=== PATIENT | female | born 2000 | race Caucasian/White ===

== ENCOUNTER 2019-04-23 02:28 | Emergency (ER) | payer SELFPAY ==
[~2019-04-23] VITALS: Ht 162 cm; Wt 72.0 kg
--- NOTE | 2019-04-23 02:46 | ED Psychosocial ---
General Stated Complaint: OVERDOSE Source: patient, spouse (jai Ybarra) Exam Limitations: no limitations (ANDREEA JARRETT) History of Present Illness Date Seen by Provider: Apr 23, 2019 Time Seen by Provider: 02:30 Initial Comments Patient presents to ER by EMS from scene where she lives with her grandfather and jai, currently. She has felt depressed for many years and has had suicidal thoughts in the past but she denies having any suicidal thoughts today. She says between finances and the stress in her life just felt totally out of it. She had a bottle of ibuprofen since around for menstrual cramps and headaches with this new and open 100 tabs 200 mg each. She says she just started taking them because it felt like a good thing to do. She really didn't have any goal. She denies multiple times she is suicidal or had any suicidal thoughts of time. Had some nausea. She started taking them around 10:00 last night and apologetic about 10:15 minutes to take the whole bottle. She denies any vomiting. She's not having any nausea now. No fevers chills, diarrhea, constipation, belly pain, acid reflux, dysuria or discharge. She's not on control or any medications. She does not follow with a doctor. She does not follow with a counselor or psychiatrist. She has no known drug allergies. She does have a history of cutting and says she was doing some scratching with her fingernails of her forearms couple weeks ago but nothing recently. (ANDREEA JARRETT) Allergies and Home Medications Allergies Coded Allergies: No Known Drug Allergies (Unverified , 04/23/19) Patient Home Medication List Home Medication List Reviewed: Yes (ANDREEA JARRETT) Review of Systems Constitutional: No chills, No fever, No malaise EENTM: No ear discharge, No ear pain Respiratory: No cough, No phlegm, No short of breath Cardiovascular: No chest pain, No edema Gastrointestinal: No abdominal pain, No constipation; nausea; No vomiting Genitourinary: No discharge, No dysuria : No Control/STD Prophylaxis: None Musculoskeletal: No back pain, No joint pain Skin: No pruritus, No rash Psychiatric/Neurological: See HPI, Depressed (ANDREEA JARRETT) All Other Systems Reviewed Negative Unless Noted: Yes (ANDREEA JARRETT) Past Fuqeqyl-Fbmunz-Gobfok Hx Patient Social History Alcohol Use: Occasionally Uses Recreational Drug Use: No (ANDREEA JARRETT) Physical Exam Vital Signs - First Documented 04/23/19 02:29 Temp 36.2 Pulse 98 Resp 18 B/P (MAP) 150/80 (103) Pulse Ox 98 O2 Delivery Room Air (LG BHAKTA MD) Capillary Refill : (ANDREEA JARRETT) Height, Weight, BMI Height: '" Weight: lbs. oz. kg; BMI Method: General Appearance: no apparent distress, other (disheveled) HEENT: PERRL/EOMI, pharynx normal Neck: non-tender, full range of motion Respiratory: lungs clear, normal breath sounds, no respiratory distress, no accessory muscle use Cardiovascular: normal peripheral pulses, regular rate, rhythm, no edema Peripheral Pulses: 2+ Radial Pulses (R), 2+ Radial Pulses (L) Gastrointestinal: non tender, soft Neurologic/Psychiatric: alert, oriented x 3, other (flat, depressed affect. She denies suicidal or homicidal ideation. She denies hallucinations or delusions.) Appearance/Memory: neat; No denies illness; disheveled Behavior/Eye Contact: cooperative, good eye contact, decreased rate of speech Thoughts/Hallucinations: no apparent hallucination Skin: normal color, warm/dry, other (no evidence of cutting recently) (ANDREEA JARRETT) Progress/Results/Core Measures Results/Orders Lab Results Laboratory Tests Test 04/23/19 02:32 04/23/19 02:42 04/23/19 03:57 04/23/19 06:40 Range/Units Urine Color YELLOW Urine Clarity CLEAR Urine pH 6.0 5-9 Urine Specific Douglas <=1.005 1.016-1.022 Urine Protein NEGATIVE NEGATIVE Urine Glucose (UA) NEGATIVE NEGATIVE Urine Ketones NEGATIVE NEGATIVE Urine Nitrite NEGATIVE NEGATIVE Urine Bilirubin NEGATIVE NEGATIVE Urine Urobilinogen 0.2 < = 1.0 MG/DL Urine Leukocyte Esterase NEGATIVE NEGATIVE Urine RBC (Auto) 1+ H NEGATIVE Urine RBC RARE /HPF Urine WBC NONE /HPF Urine Squamous Epithelial Cells 0-2 /HPF Urine Renal Epithelial Cells NONE /HPF Urine Crystals NONE /LPF Urine Bacteria TRACE /HPF Urine Casts NONE /LPF Urine Mucus NEGATIVE /LPF Urine Culture Indicated NO Urine Test NEGATIVE NEGATIVE Urine Opiates Screen NEGATIVE NEGATIVE Urine Oxycodone Screen NEGATIVE NEGATIVE Urine Methadone Screen NEGATIVE NEGATIVE Urine Propoxyphene Screen NEGATIVE NEGATIVE Urine Barbiturates Screen NEGATIVE NEGATIVE Ur Tricyclic Antidepressants Screen NEGATIVE NEGATIVE Urine Phencyclidine Screen NEGATIVE NEGATIVE Urine Amphetamines Screen NEGATIVE NEGATIVE Urine Methamphetamines Screen NEGATIVE NEGATIVE Urine Benzodiazepines Screen NEGATIVE NEGATIVE Urine Cocaine Screen NEGATIVE NEGATIVE Urine Cannabinoids Screen NEGATIVE NEGATIVE White Blood Count 13.2 H 4.3-11.0 10^3/uL Red Blood Count 4.90 4.35-5.85 10^6/uL Hemoglobin 14.0 11.5-16.0 G/DL Hematocrit 42 35-52 % Mean Corpuscular Volume 86 80-99 FL Mean Corpuscular Hemoglobin 29 25-34 PG Mean Corpuscular Hemoglobin Concent 33 32-36 G/DL Red Cell Distribution Width 13.1 10.0-14.5 % Platelet Count 376 130-400 10^3/uL Mean Platelet Volume 10.2 7.4-10.4 FL Neutrophils (%) (Auto) 59 42-75 % Lymphocytes (%) (Auto) 29 12-44 % Monocytes (%) (Auto) 8 0-12 % Eosinophils (%) (Auto) 4 0-10 % Basophils (%) (Auto) 0 0-10 % Neutrophils # (Auto) 7.8 1.8-7.8 X 10^3 Lymphocytes # (Auto) 3.9 1.0-4.0 X 10^3 Monocytes # (Auto) 1.0 0.0-1.0 X 10^3 Eosinophils # (Auto) 0.5 H 0.0-0.3 10^3/uL Basophils # (Auto) 0.1 0.0-0.1 10^3/uL Sodium Level 141 141 135-145 MMOL/L Potassium Level 4.3 4.0 3.6-5.0 MMOL/L Chloride Level 107 108 H 98-107 MMOL/L Carbon Dioxide Level 16 L 18 L 21-32 MMOL/L Anion Gap 18 H 15 H 5-14 MMOL/L Blood Urea Nitrogen 13 11 7-18 MG/DL Creatinine 0.75 0.75 0.60-1.30 MG/DL Estimat Glomerular Filtration Rate > 60 > 60 BUN/Creatinine Ratio 17 15 Glucose Level 88 101 70-105 MG/DL Calcium Level 9.7 8.9 8.5-10.1 MG/DL Corrected Calcium 9.4 8.8 8.5-10.1 MG/DL Total Bilirubin 0.2 0.2 0.1-1.0 MG/DL Aspartate Amino Transf (AST/SGOT) 28 41 H 5-34 U/L Alanine Aminotransferase (ALT/SGPT) 19 32 0-55 U/L Alkaline Phosphatase 116 108 40-136 U/L Total Protein 8.2 7.4 6.4-8.2 GM/DL Albumin 4.4 4.1 3.2-4.5 GM/DL Salicylates Level < 5.0 L 5.0-20.0 MG/DL Acetaminophen Level 17 < 10 L 10-30 UG/ML Serum Alcohol < 10 <10 MG/DL Blood Gas Puncture Site RIGHT RADIAL Blood Gas Patient Temperature 36.7 Arterial Blood pH 7.31 *L 7.37-7.43 Arterial Blood Partial Pressure CO2 43 35-45 MMHG Arterial Blood Partial Pressure O2 97 H 79-93 MMHG Arterial Blood HCO3 21 L 23-27 MMOL/L Arterial Blood Total CO2 22.4 21.0-31.0 MMOL/L Arterial Blood Oxygen Saturation 98 94-100 % Arterial Blood Base Excess -4.2 L -2.5-2.5 MMOL/L Zurdo Test POSITIVE Blood Gas Ventilator Setting NO Blood Gas Inspired Oxygen ROOM AIR Test 04/23/19 06:44 04/23/19 09:57 04/23/19 10:17 Range/Units Blood Gas Puncture Site LEFT RADIAL LEFT RADIAL Blood Gas Patient Temperature 36.2 37 Arterial Blood pH 7.32 *L 7.35 L 7.37-7.43 Arterial Blood Partial Pressure CO2 37 41 35-45 MMHG Arterial Blood Partial Pressure O2 98 H 95 H 79-93 MMHG Arterial Blood HCO3 19 L 22 L 23-27 MMOL/L Arterial Blood Total CO2 20.1 L 23.2 21.0-31.0 MMOL/L Arterial Blood Oxygen Saturation 98 98 94-100 % Arterial Blood Base Excess -6.3 L -2.8 L -2.5-2.5 MMOL/L Zurdo Test POSITIVE POSITIVEV Blood Gas Ventilator Setting NO NO Blood Gas Inspired Oxygen ROOM AIR N/A Sodium Level 141 135-145 MMOL/L Potassium Level 4.5 3.6-5.0 MMOL/L Chloride Level 110 H 98-107 MMOL/L Carbon Dioxide Level 20 L 21-32 MMOL/L Anion Gap 11 5-14 MMOL/L Blood Urea Nitrogen 12 7-18 MG/DL Creatinine 0.70 0.60-1.30 MG/DL Estimat Glomerular Filtration Rate > 60 BUN/Creatinine Ratio 17 Glucose Level 92 70-105 MG/DL Calcium Level 8.9 8.5-10.1 MG/DL Corrected Calcium 8.9 8.5-10.1 MG/DL Total Bilirubin 0.2 0.1-1.0 MG/DL Aspartate Amino Transf (AST/SGOT) 36 H 5-34 U/L Alanine Aminotransferase (ALT/SGPT) 32 0-55 U/L Alkaline Phosphatase 101 40-136 U/L Total Protein 7.2 6.4-8.2 GM/DL Albumin 4.0 3.2-4.5 GM/DL (LG BHAKTA MD) My Orders Orders - LG BHAKTA MD General/Regular (04/23/19 Breakfast) Arterial Blood Gas (04/23/19 09:48) Comprehensive Metabolic Panel (04/23/19 09:48) (LG BHAKTA MD) Medications Given in ED Current Medications Medications Dose Ordered Sig/Db Route Start Time Stop Time Status Last Admin Dose Admin Pantoprazole 40 mg ONCE ONCE IV 04/23/19 03:45 04/23/19 03:46 DC 04/23/19 03:51 40 MG (LG BHAKTA MD) Vital Signs/I&O 04/23/19 02:29 Temp 36.2 Pulse 98 Resp 18 B/P (MAP) 150/80 (103) Pulse Ox 98 O2 Delivery Room Air (LG BHAKTA MD) Progress Progress Note : Time: 04:17 Progress Note Initially poison control wanted us to obtain labs. If her chemistry panel demonstrated acidosis obtain an ABG. ABG shows a pH of 7.31 metabolic acidosis. Poison control had Suggested we give bicarbonate however we are going to call them back and clarify he blood pH bicarbonate would be indicated. Repeat EKG is unremarkable. They also recommended a 6 hour period to watch her and then repeat a chem panel. We gave pantoprazole. Patient is sleeping quietly without complaint. Her first liter is able to keep some lactated Ringer's going about 100 cc per hour while she's here to continue to help flush her kidneys. Urine negative. They advised that the lower limit of severe toxicity usually begins around 400 mg/kg or 20,800 mg. She's ingested approximately 20,000 mg. This puts her in the range of 200-400 mg/kg where GI symptoms, mild DISABILITY CASE MANAGER depression can be observed. They recommended at least 6 hours of observation. They have faxed over the poison control nomogram for ibuprofen. Poison control says since she is symptomatic (Acidotic) we should repeat a chem panel, APAP and ABG at 0630. They recommended against doing the bicarbonate at this time. (ANDREEA JARRETT) Progress Note : Progress Note 0730: I did assume care of the patient from Dr. Jarrett at 0615 pending labs. Those are now complete. I have seen the patient. She is overall doing better now. She does have an episode of nausea and vomiting that has subsequently resolved. She has done ice chips without difficulty and is not longer vomiting. Repeat labs do not show any significant abnormalities of concern and patient is medically cleared for psychiatric evaluation. She will be cleared for inpatient or outpatient therapy as determined by mental health screening. Pending screen. Monitor patient. 0949: Poison control did recommend 1 more repeat ABG and chemistry panel. Those will be ordered for 10 AM. Patient has been seen by screener. They will follow-up with her by phone call at 6 PM today and call her back between 8 and 5 tomorrow to schedule her for intake screen on Wednesday04/25/19. Patient has somebody to stay with her and the screener and patient agree that this is a safe plan. Patient knows to return for any concerns. Pending repeat CMP and ABG. 1103: Labs reviewed and are okay. Discharged home with return precautions. Patient verbalize understanding instructions and agreement with plan. (LG BHAKTA MD) Initial ECG Impression Date: Apr 23, 2019 Initial ECG Impression Time: 02:43 Initial ECG Rate: 87 Initial ECG Rhythm: Normal Sinus Initial ECG Intervals: Normal Initial ECG Impression: Normal, Nonspecific Changes Initial ECG Comparisson: No Previous ECG Available Comment No ST changes. QTC 419 ms. QRS duration 80 ms. (ANDREEA JARRETT) Departure Impression Primary Impression: Drug overdose Qualified Codes: T50.904A - Poisoning by unspecified drugs, medicaments and biological substances, undetermined, initial encounter Disposition: 01 HOME, SELF-CARE Condition: Stable Departure-Patient Inst. Decision time for Depature: 11:03 (LG BHAKTA MD) Referrals: [facility] [place] [facility] [place] Patient Instructions: ALCOHOL AND SUBSTANCE ABUSE, Accidental Overdose (DC) Add. Discharge Instructions: Do not take medications other than as prescribed or recommended package directions. Follow-up with mental health as established. This should call you at 6 PM today for recheck and between 8 AM and 5 PM tomorrow to schedule an appointment for the following day. You may have stomach upset over the next few weeks due to the amount of ibuprofen that he took. It would be okay for you to take Pepcid or the generic famotidine one tablet up to twice daily for the next week or 2 and then as needed. Drink plenty of fluids. It is very important that he follow-up with mental health as scheduled. Return for concerns of wanting to harm yourself, breathing problems, increasing abdominal pain, weakness or other concerns as needed. If you are having emotional concerns, you may call the [facility]- line at [phone]. You may also return to the emergency department. ANDREEA JARRETT Apr 23, 2019 02:46 LG MAYO MD Apr 23, 2019 07:34 POS
[2019-04-23 02:50] LABS: BILIRUBIN,URINE NEGATIVE (NEGATIVE); CLARITY,URINE CLEAR; COLOR,URINE YELLOW; GLUCOSE, URINE (UA) NEGATIVE (NEGATIVE); KETONES,URINE NEGATIVE (NEGATIVE); LEUKOCYTE ESTERASE ,URINE NEGATIVE (NEGATIVE); NITRITE,URINE NEGATIVE (NEGATIVE); PROTEIN,URINE NEGATIVE (NEGATIVE)
[2019-04-23 02:53] LABS: BASOPHILS # (AUTO) 0.1 10^3/uL (0.0-0.1); BASOPHILS % (AUTO) 0 % (0-10); EOSINOPHILS # (AUTO) 0.5 10^3/uL (0.0-0.3); EOSINOPHILS % (AUTO) 4 % (0-10); HEMATOCRIT 42 % (35-52); LYMPHOCYTES # (AUTO) 3.9 X 10^3 (1.0-4.0); LYMPHOCYTES % (AUTO) 29 % (12-44); MEAN CORPUSCULAR HEMOGLOBIN 29 PG (25-34); MEAN CORPUSCULAR HGB CONC 33 G/DL (32-36); MEAN CORPUSCULAR VOLUME 86 FL (80-99); MEAN PLATELET VOLUME 10.2 FL (7.4-10.4); MONOCYTES % (AUTO) 8 % (0-12); NEUTROPHILS # (AUTO) 7.8 X 10^3 (1.8-7.8); NEUTROPHILS % (AUTO) 59 % (42-75); PLATELET COUNT 376 10^3/uL (130-400); RED CELL DISTRIBUTION WIDTH 13.1 % (10.0-14.5); WHITE BLOOD COUNT 13.2 10^3/uL (4.3-11.0)
[2019-04-23 03:10] LABS: AMPHETAMINE SCREEN, URINE NEGATIVE (NEGATIVE); BACTERIA,URINE TRACE /HPF; BARBITURATE SCREEN URINE NEGATIVE (NEGATIVE); BENZODIAZEPINES SCREEN URINE NEGATIVE (NEGATIVE); CANNABINOID SCREEN, URINE NEGATIVE (NEGATIVE); COCAINE SCREEN URINE NEGATIVE (NEGATIVE); HCG,QUALITATIVE URINE NEGATIVE (NEGATIVE); METHADONE STAT NEGATIVE (NEGATIVE); METHAMPHETAMINE SCREEN URINE S NEGATIVE (NEGATIVE); OPIATE SCREEN URINE NEGATIVE (NEGATIVE); OXYCODONE STAT NEGATIVE (NEGATIVE); PROPOXYPHENE STAT NEGATIVE (NEGATIVE); RBC,URINE RARE /HPF; SQUAMOUS EPITHELIAL CELL,UR 0-2 /HPF; TRICYCLIC ANTIDEPRESSANTS SCRE NEGATIVE (NEGATIVE)
[2019-04-23 03:15] LABS: ACETAMINOPHEN 17 UG/ML (10-30); ALANINE AMINOTRANSFERASE 19 U/L (0-55); ALBUMIN 4.4 GM/DL (3.2-4.5); ALKALINE PHOSPHATASE 116 U/L (40-136); BILIRUBIN,TOTAL 0.2 MG/DL (0.1-1.0); BUN/CREATININE RATIO 17; CALCIUM 9.7 MG/DL (8.5-10.1); CARBON DIOXIDE 16 MMOL/L (21-32); CHLORIDE 107 MMOL/L (98-107); CREATININE SERUM 0.75 MG/DL (0.60-1.30); GFR ESTIMATED > 60; GLUCOSE 88 MG/DL (70-105); POTASSIUM 4.3 MMOL/L (3.6-5.0); SALICYLATE < 5.0 MG/DL (5.0-20.0); SODIUM 141 MMOL/L (135-145); TOTAL PROTEIN 8.2 GM/DL (6.4-8.2)
[2019-04-23] MEDS ORDERED: PANTOPRAZOLE 40 MG (PROTONIX) VIAL IV ONE (03:45)
--- NOTE | 2019-04-23 04:00 | NUR ---
EMS INITIATED IV FLUIDS COMPLETED 1L OF NS INFUSED
[2019-04-23 04:04] LABS: ABG BASE EXCESS -4.2 MMOL/L (-2.5-2.5); ABG OXYGEN SATURATION 98 % (94-100); ABG PCO2 43 MMHG (35-45); ABG PO2 97 MMHG (79-93); ABG TCO2 22.4 MMOL/L (21.0-31.0)
[2019-04-23 04:09] LABS: ALLENS TEST POSITIVE; INSPIRED O2 ROOM AIR; PATIENT TEMP 36.7; VENTILATOR NO
[2019-04-23 04:11] LABS: ABG PH 7.31 (7.37-7.43)
[2019-04-23] MEDS ORDERED: LACTATED RINGERS 1,000 ML IV SCH (04:30)
[2019-04-23 06:50] LABS: ABG BASE EXCESS -6.3 MMOL/L (-2.5-2.5); ABG OXYGEN SATURATION 98 % (94-100); ABG PCO2 37 MMHG (35-45); ABG PO2 98 MMHG (79-93); ABG TCO2 20.1 MMOL/L (21.0-31.0)
[2019-04-23 06:52] LABS: ALLENS TEST POSITIVE; INSPIRED O2 ROOM AIR; PATIENT TEMP 36.2; VENTILATOR NO
[2019-04-23 06:53] LABS: ABG PH 7.32 (7.37-7.43)
[2019-04-23 07:11] LABS: ALANINE AMINOTRANSFERASE 32 U/L (0-55); ALBUMIN 4.1 GM/DL (3.2-4.5); ALKALINE PHOSPHATASE 108 U/L (40-136); BILIRUBIN,TOTAL 0.2 MG/DL (0.1-1.0); BUN/CREATININE RATIO 15; CALCIUM 8.9 MG/DL (8.5-10.1); CARBON DIOXIDE 18 MMOL/L (21-32); CHLORIDE 108 MMOL/L (98-107); CREATININE SERUM 0.75 MG/DL (0.60-1.30); GFR ESTIMATED > 60; GLUCOSE 101 MG/DL (70-105); SODIUM 141 MMOL/L (135-145); TOTAL PROTEIN 7.4 GM/DL (6.4-8.2)
--- NOTE | 2019-04-23 07:23 | NUR ---
POISON CONTROL CONTACTED AND GIVEN RECENT LAB RESULTS
--- NOTE | 2019-04-23 07:30 | NUR ---
[facility] CONTACTED FOR MENTAL HEALTH
--- NOTE | 2019-04-23 07:38 | NUR ---
TRACKING #- [id number] FOR MENTAL HEALTH
--- NOTE | 2019-04-23 08:20 | NUR ---
BREAKFAST TRAY SERVED
[2019-04-23 08:37] LABS: ACETAMINOPHEN < 10 UG/ML (10-30)
--- NOTE | 2019-04-23 09:00 | NUR ---
PT UP TO BATHROOM THEN BACK TO BED MONITORS AND IV CONT
--- NOTE | 2019-04-23 09:20 | NUR ---
SCREENER IN ROOM
--- NOTE | 2019-04-23 09:52 | NUR ---
LABS REDRAWN ORDERED,NOTIFIED RT FOR ABG
[2019-04-23 10:23] LABS: ABG BASE EXCESS -2.8 MMOL/L (-2.5-2.5); ABG OXYGEN SATURATION 98 % (94-100); ABG PCO2 41 MMHG (35-45); ABG PH 7.35 (7.37-7.43); ABG PO2 95 MMHG (79-93); ABG TCO2 23.2 MMOL/L (21.0-31.0)
[2019-04-23 10:25] LABS: ALLENS TEST POSITIVEV; PATIENT TEMP 37; VENTILATOR NO
[2019-04-23 10:30] LABS: ALANINE AMINOTRANSFERASE 32 U/L (0-55); ALKALINE PHOSPHATASE 101 U/L (40-136); BILIRUBIN,TOTAL 0.2 MG/DL (0.1-1.0); BUN/CREATININE RATIO 17; CALCIUM 8.9 MG/DL (8.5-10.1); CARBON DIOXIDE 20 MMOL/L (21-32); CHLORIDE 110 MMOL/L (98-107); GFR ESTIMATED > 60; GLUCOSE 92 MG/DL (70-105); POTASSIUM 4.5 MMOL/L (3.6-5.0); SODIUM 141 MMOL/L (135-145); TOTAL PROTEIN 7.2 GM/DL (6.4-8.2)
[2019-04-23 11:25] VITALS: BP 123/68
== END 2019-04-23 11:27 | disposition home or self-care (01) ==
LOC: EDUNIT# 02:28 → ER 02:30
DX: T39.311A Poisoning by propionic acid derivatives, accidental (unintentional), initial encounter (principal)
CPT/HCPCS: 36415; 36600; 80053; 80306; 80320; 80329; 81000; 82805; 84703; 85025; 93005; 93041

== ENCOUNTER 2020-06-17 03:43 | Emergency (ER) | payer SELFPAY ==
[~2020-06-17] VITALS: Ht 162.6 cm; Wt 81.6 kg
[2020-06-17] MEDS ORDERED: LACTATED RINGERS 1,000 ML IV ONE (04:00)
[2020-06-17 04:10] LABS: BASOPHILS # (AUTO) 0.1 10^3/uL (0.0-0.1); BASOPHILS % (AUTO) 1 % (0-10); EOSINOPHILS # (AUTO) 0.3 10^3/uL (0.0-0.3); EOSINOPHILS % (AUTO) 2 % (0-10); HEMATOCRIT 41 % (35-52); HEMOGLOBIN 13.4 g/dL (11.5-16.0); LYMPHOCYTES # (AUTO) 3.1 10^3/uL (1.0-4.0); LYMPHOCYTES % (AUTO) 24 % (12-44); MEAN CORPUSCULAR HEMOGLOBIN 28 pg (25-34); MEAN CORPUSCULAR HGB CONC 33 g/dL (32-36); MEAN CORPUSCULAR VOLUME 85 fL (80-99); MEAN PLATELET VOLUME 9.8 fL (9.0-12.2); MONOCYTES # (AUTO) 0.9 10^3/uL (0.0-1.0); MONOCYTES % (AUTO) 7 % (0-12); NEUTROPHILS # (AUTO) 8.7 10^3/uL (1.8-7.8); NEUTROPHILS % (AUTO) 67 % (42-75); PLATELET COUNT 393 10^3/uL (130-400)
[2020-06-17 04:15] LABS: BILIRUBIN,URINE NEGATIVE (NEGATIVE); CLARITY,URINE CLEAR; COLOR,URINE YELLOW; GLUCOSE, URINE (UA) NEGATIVE (NEGATIVE); KETONES,URINE 1+ (NEGATIVE); LEUKOCYTE ESTERASE ,URINE NEGATIVE (NEGATIVE); NITRITE,URINE NEGATIVE (NEGATIVE); PH,URINE 5.5 (5-9); PROTEIN,URINE TRACE (NEGATIVE)
[2020-06-17 04:31] LABS: CHLORIDE 104 MMOL/L (98-107); POTASSIUM 3.6 MMOL/L (3.6-5.0); SODIUM 138 MMOL/L (135-145)
[2020-06-17 04:32] LABS: ALBUMIN 4.4 GM/DL (3.2-4.5)
[2020-06-17 04:33] LABS: AMYLASE 56 U/L (25-125); CALCIUM 9.5 MG/DL (8.5-10.1)
[2020-06-17 04:34] LABS: GLUCOSE 101 MG/DL (70-105); TOTAL PROTEIN 7.8 GM/DL (6.4-8.2)
[2020-06-17 04:35] LABS: CARBON DIOXIDE 22 MMOL/L (21-32)
[2020-06-17 04:36] LABS: BILIRUBIN,TOTAL 0.5 MG/DL (0.1-1.0)
[2020-06-17 04:38] LABS: ALKALINE PHOSPHATASE 109 U/L (40-136); CREATININE SERUM 0.82 MG/DL (0.60-1.30); GFR ESTIMATED > 60
[2020-06-17 04:39] LABS: ACETAMINOPHEN 16 UG/ML (10-30); BUN/CREATININE RATIO 20
[2020-06-17 04:39] LABS: BACTERIA,URINE FEW /HPF; RBC,URINE 0-2 /HPF
[2020-06-17 04:40] LABS: AMPHETAMINE SCREEN, URINE NEGATIVE (NEGATIVE); BARBITURATE SCREEN URINE NEGATIVE (NEGATIVE); BENZODIAZEPINES SCREEN URINE NEGATIVE (NEGATIVE); CANNABINOID SCREEN, URINE NEGATIVE (NEGATIVE); COCAINE SCREEN URINE NEGATIVE (NEGATIVE); METHADONE STAT NEGATIVE (NEGATIVE); METHAMPHETAMINE SCREEN URINE S NEGATIVE (NEGATIVE); OPIATE SCREEN URINE NEGATIVE (NEGATIVE); OXYCODONE STAT NEGATIVE (NEGATIVE); PROPOXYPHENE STAT NEGATIVE (NEGATIVE); TRICYCLIC ANTIDEPRESSANTS SCRE NEGATIVE (NEGATIVE)
[2020-06-17 04:41] LABS: ALANINE AMINOTRANSFERASE 15 U/L (0-55); SALICYLATE < 5.0 MG/DL (5.0-20.0)
--- NOTE | 2020-06-17 05:28 | ED Psychosocial ---
General Chief Complaint: Suicidal Ideation Risk Stated Complaint: INGESTED BOTTLE OF PILLS Nursing Triage Note: PT AMBULATES TO ROOM #6 WITH C/O OVERDOSE. REPORTS BETWEEN 29 - 99 ON THIS DAY, SHE INGESTED X20 50MG SERTRALINE IN AN ATTEMPT TO KILL HERSELF. REPORTS SHE FEELS HOPELESS ET STATES SHE IS HAVING "A ROUGH TIME." REPORTS S/S NAUSEA/VOMITING SINCE INGESTION. REPORTS HX PREVIOUS OVERDOSE SUICIDE ATTEMPT IN APRIL 2019. A&OX4. Source: patient (VERY VAGUE HISTORIAN) (NEO DUMONT DO) History of Present Illness Date Seen by Provider: Jun 17, 2020 Time Seen by Provider: 03:52 Initial Comments PT ARRIVES VIA POV FROM HOME-- DROVE HER HERE STATES SHE INTENTIONALLY TOOK APPROXIMATELY 20 SERTRALINE 50 MG TABLETS BETWEEN 29 AND 99 TODAY, IN AN ATTEMPT TO KILL HERSELF--STATES "THEN I REGRETTED IT" STATES SHE BEGAN TO HAVE NAUSEA AND VOMITING AND VOMITED UP PILL FRAGMENTS. STATES HER WOKE UP DUE TO HER VOMITING AND SHE TOLD HIM SHE HAD TAKEN THE PILLS, AND HE BROUGHT HER HERE STATES SHE HAS "BEEN HAVING A ROUGH TIME" BUT WILL NOT ELABORATE STATES "STRESS OF LIFE" AND THAT SHE "FEELS HOPELESS" --BUT AGAIN WILL NOT ELABORATE STATES SHE HAS "WAVES OF DESPAIR" AND SHE "FEELS LIKE NOTHING IS GOING TO GET BETTER" --AGAIN WILL NOT ELABORATE. STATES SHE HAS FELT LIKE THIS FOR A LONG TIME, BUT WILL NOT STATE WHAT PROMPTED HER TO OVERDOSE TONIGHT. STATES SHE HAD OVERDOSED 04/2019 ON IBUPROFEN IN A SUICIDE ATTEMPT AND ARRANGEMENTS WERE MADE FOR OUTPATIENT FOLLOW UP. PT STATES SHE HAD ONE VISIT WITH [facility] "A LONG TIME AGO" AND HAS NOT FOLLOWED UP SINCE. SHE WAS GIVEN RX FOR SERTRALINE 50 MG #60 ON 08/16/19--BRINGS IN EMPTY BOTTLE PT STATES SHE WORKS AT [employer] [facility] [employer] [facility], AND HER WORKS DURING THE DAY ALSO HAS 2 ROOM MATES AND GRANDFATHER THAT ALL LIVE IN THE HOME. PCP: NAHOMY PSYCH: [facility]--"1 VISIT" (NEO DUMONT DO) Allergies and Home Medications Allergies Coded Allergies: No Known Drug Allergies (Unverified , 04/23/19) Patient Home Medication List Home Medication List Reviewed: Yes (NIYA TURPIN MD) Review of Systems Constitutional: no symptoms reported EENTM: no symptoms reported Respiratory: no symptoms reported Cardiovascular: no symptoms reported Gastrointestinal: see HPI; No abdominal pain; nausea, vomiting Genitourinary: no symptoms reported : No LMP: Jun 15, 2020 Control/STD Prophylaxis: None Musculoskeletal: no symptoms reported Skin: no symptoms reported Psychiatric/Neurological: See HPI, Depressed (NEO DUMONT DO) Past Tfdgrrn-Rptroe-Xbkjcd Hx Past Med/Social Hx: Reviewed and Corrections made (NEO DUMONT DO) Patient Social History Alcohol Use: Rarely Uses Number of Drinks Today: 0 Recreational Drug Use: No Smoking Status: Never a Smoker 2nd Hand Smoke Exposure: No Recent Foreign Travel: No Contact w/Someone Who Travel: No Recent Infectious Disease Expo: No Physical Abuse: No Sexual Abuse: No (NEO DUMONT DO) Immunizations Up To Date Tetanus Booster (TDap): Unknown PED Vaccines UTD: Yes (NEO DUMONT DO) Past Medical History Surgeries: No Respiratory: Yes Asthma Cardiac: No Neurological: No Genitourinary: No Gastrointestinal: No Musculoskeletal: No Endocrine: No HEENT: No Cancer: No Psychosocial: Yes Anxiety, Suicide Attempts, Depression Nursing Suicide Risk Notes: SWEEPER TOOL INITIATED. PERSONAL BELONGINGS RESIDE BEHIND NURSES DESK. Integumentary: No Blood Disorders: No Adverse Reaction/Blood Tranf: No (NEO DUMONT DO) Physical Exam Vital Signs - First Documented 06/17/20 03:50 Temp 35.9 Pulse 86 Resp 17 B/P (MAP) 139/94 (109) Pulse Ox 98 O2 Delivery Room Air (NIYA TURPIN MD) Capillary Refill : Less Than 3 Seconds (NEO DUMONT DO) Height, Weight, BMI Height: '" Weight: lbs. oz. kg; 30.00 BMI Method: General Appearance: WD/WN, no apparent distress, other (ARRIVES WITH A STUFFED TOY DOLL, TALKING "BABYTALK" AND MUMBLING AND ACTING CHILD-LIKE. THIS STOPS WHEN DISTRACTED. 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 BEHAVIOR ABOVE) Appearance/Memory: other ( ABOVE. ) Behavior/Eye Contact: avoids eye contact Thoughts/Hallucinations: no apparent hallucination Skin: normal color, warm/dry, other (NO EVIDENCE OF TRAUMA/SELF HARM. ) (NEO DUMONT DO) Progress/Results/Core Measures Results/Orders Lab Results Laboratory Tests Test 06/17/20 04:00 06/17/20 04:05 06/17/20 04:10 06/17/20 06:20 Range/Units White Blood Count 13.0 H 4.3-11.0 10^3/uL Red Blood Count 4.83 3.80-5.11 10^6/uL Hemoglobin 13.4 11.5-16.0 g/dL Hematocrit 41 35-52 % Mean Corpuscular Volume 85 80-99 fL Mean Corpuscular Hemoglobin 28 25-34 pg Mean Corpuscular Hemoglobin Concent 33 32-36 g/dL Red Cell Distribution Width 13.0 10.0-14.5 % Platelet Count 393 130-400 10^3/uL Mean Platelet Volume 9.8 9.0-12.2 fL Immature Granulocyte % (Auto) 0 % Neutrophils (%) (Auto) 67 42-75 % Lymphocytes (%) (Auto) 24 12-44 % Monocytes (%) (Auto) 7 0-12 % Eosinophils (%) (Auto) 2 0-10 % Basophils (%) (Auto) 1 0-10 % Neutrophils # (Auto) 8.7 H 1.8-7.8 10^3/uL Lymphocytes # (Auto) 3.1 1.0-4.0 10^3/uL Monocytes # (Auto) 0.9 0.0-1.0 10^3/uL Eosinophils # (Auto) 0.3 0.0-0.3 10^3/uL Basophils # (Auto) 0.1 0.0-0.1 10^3/uL Immature Granulocyte # (Auto) 0.0 0.0-0.1 10^3/uL Sodium Level 138 135-145 MMOL/L Potassium Level 3.6 3.6-5.0 MMOL/L Chloride Level 104 98-107 MMOL/L Carbon Dioxide Level 22 21-32 MMOL/L Anion Gap 12 5-14 MMOL/L Blood Urea Nitrogen 16 7-18 MG/DL Creatinine 0.82 0.60-1.30 MG/DL Estimat Glomerular Filtration Rate > 60 BUN/Creatinine Ratio 20 Glucose Level 101 70-105 MG/DL Calcium Level 9.5 8.5-10.1 MG/DL Corrected Calcium 9.2 8.5-10.1 MG/DL Total Bilirubin 0.5 0.1-1.0 MG/DL Aspartate Amino Transf (AST/SGOT) 15 5-34 U/L Alanine Aminotransferase (ALT/SGPT) 15 0-55 U/L Alkaline Phosphatase 109 40-136 U/L Total Protein 7.8 6.4-8.2 GM/DL Albumin 4.4 3.2-4.5 GM/DL Amylase Level 56 25-125 U/L TSH [place] Testing 4.30 0.35-4.94 UIU/ML Serum Test, Qualitative NEGATIVE NEGATIVE Salicylates Level < 5.0 L 5.0-20.0 MG/DL Acetaminophen Level 16 < 10 L 10-30 UG/ML Serum Alcohol < 10 <10 MG/DL Urine Color YELLOW Urine Clarity CLEAR Urine pH 5.5 5-9 Urine Specific [place] >=1.030 1.016-1.022 Urine Protein TRACE H NEGATIVE Urine Glucose (UA) NEGATIVE NEGATIVE Urine Ketones 1+ H NEGATIVE Urine Nitrite NEGATIVE NEGATIVE Urine Bilirubin NEGATIVE NEGATIVE Urine Urobilinogen 0.2 < = 1.0 MG/DL Urine Leukocyte Esterase NEGATIVE NEGATIVE Urine RBC (Auto) NEGATIVE NEGATIVE Urine RBC 0-2 /HPF Urine WBC 10-25 H /HPF Urine Squamous Epithelial Cells 2-5 /HPF Urine Crystals NONE /LPF Urine Bacteria FEW H /HPF Urine Casts NONE /LPF Urine Mucus NEGATIVE /LPF Urine Culture Indicated YES Urine Opiates Screen NEGATIVE NEGATIVE Urine Oxycodone Screen NEGATIVE NEGATIVE Urine Methadone Screen NEGATIVE NEGATIVE Urine Propoxyphene Screen NEGATIVE NEGATIVE Urine Barbiturates Screen NEGATIVE NEGATIVE Ur Tricyclic Antidepressants Screen NEGATIVE NEGATIVE Urine Phencyclidine Screen NEGATIVE NEGATIVE Urine Amphetamines Screen NEGATIVE NEGATIVE Urine Methamphetamines Screen NEGATIVE NEGATIVE Urine Benzodiazepines Screen NEGATIVE NEGATIVE Urine Cocaine Screen NEGATIVE NEGATIVE Urine Cannabinoids Screen NEGATIVE NEGATIVE Coronavirus (COVID-19)(PCR) Negative Negative Coronavirus 2019 ([facility]) Negative Negative (NIYA TURPIN MD) My Orders Orders - NIYA TURPIN MD Cephalexin Capsule (Keflex Capsule) (06/17/20 06:30) Acetaminophen (06/17/20 06:19) Ceftriaxone For Iv Use (Rocephin For I (06/17/20 06:30) General/Regular (06/17/20 Breakfast) (NIYA TURPIN MD) Medications Given in ED (NIYA TURPIN MD) Vital Signs/I&O (NIYA TURPIN MD) Blood Pressure Mean: 109 Progress Progress Note : Progress Note POISON CONTROL CONTACTED. ONLY ADVISE REPEAT EKG IN 2 HOURS, OTHERWISE WOULD BE A NON-TOXIC DOSE. GIVEN IV FLUIDS 0557--ON REVIEWING TEST RESULTS WITH PT, SHE NOW ADMITS TO TAKING 8 500 MG TYLENOL, 8 200 MG IBUPROFEN, 4 200 MG NAPROXEN AND 1/2 TUBE OF TOOTHPASTE. RN ON PHONE WITH POISON CONTROL NOW. WILL REPEAT TYLENOL LEVEL. 0600--CARE TURNED OVER TO DR. RODRIGUEZ ([facility]) Progress Note #1: Time: 07:04 Progress Note I assumed care of this patient at 06: 00. It was divulged the patient also had a Tylenol ingestion. A repeat Tylenol level 2 hours after the initial showed no detectable acetaminophen. We are awaiting bed assignment at [facility]. Patient was found to have urinary tract infection and is treated with Rocephin. She is medically cleared for transfer to a psychiatric facility. Progress Note #2: Time: 15:10 Progress Note Patient is comfortably resting in her room. She ate breakfast without difficulty. So far a confirmed bed has not been identified in [place] or [place], [place]. We are additionally faxing the patient's chart to the [employer] system for [facility]. I confirmed [facility] has no availability. Progress Note #3: Time: 18:15 Progress Note Patient remains medically stable. We have been unable to secure a bed locally. We are now exploring admission possibilities in the [place], [place], and [facility]. Care was transitioned to Dr. Recinos. (NIYA TURPIN MD) Progress Note : Progress Note 1953 Care assumed at shift change. Patient is resting comfortably. Has eaten. Denies any suicidal thoughts at this time. No complaints. awaiting acceptance at a psychiatric facility. 0409 patient continues to rest comfortably. still awaiting placement. [facility] is still reviewing charts for admission, no confirmation yet. [facility] requested a behavioral health eval before acceptance, covid test was faxed at [phone]. [place] no availability and [facility] no availability. 0449 ACCEPTANCE AT [facility]. DR SAMANTHA YATES (BLANCO RECINOS MD) Initial ECG Impression Date: Jun 17, 2020 Initial ECG Impression Time: 04:10 Initial ECG Rate: 69 Initial ECG Rhythm: Normal Sinus Initial ECG Intervals: Normal EKG : EKG Time: 05:57 Rate: 85 Rhythm: Normal Sinus Intervals: Normal ECG Comparisson: Unchanged (NEO DUMONT DO) Initial ECG Impression Date: Jun 17, 2020 (BLANCO RECINOS MD) Departure Communication (Admissions) 0515--CALLED [facility]--NO BEDS 0516--CALLED [facility] TRANSFER LINE--WILL NOT ACCEPT RAPID COVID-19 ANTIGEN TEST, ONLY ACCEPT COVID-19 PCR SEND OUT TEST AND MUST BE NEGATIVE. 0519--CALLED [facility] IN [place]. THEY ARE CURRENTLY FULL, BUT WILL BE DISMISSING SEVERAL PATIENTS THIS MORNING AND WILL HAVE BEDS AVAILABLE THEN AND ADVISE TO FAX THEM PT'S INFORMATION. (NEO DUMONT DO) Impression Primary Impression: Intentional overdose of drug in tablet form Additional Impressions: Suicide attempt Urinary tract infection Qualified Codes: N39.0 - Urinary tract infection, site not specified Disposition: 02 XFER [facility] HOS[facility] Condition: Stable Transfer Transfer Reason: Exceeds level of care Time Spoke to Accepting Phy: 04:49 Transfer Progress Notes DISCUSSED WITH [facility]; ACCEPTING PHYSICIAN DR SAMANTHA YATES Transfer Time: 07:00 Transfer Facility: [facility] Method of Transfer: Private Vehicle (BLANCO RECINOS MD) Departure-Patient Inst. Referrals: NO,LOCAL PHYSICIAN (PCP/Family) Primary Care Physician Patient Instructions: OUTPT MENTAL HEALTH SERVICES NEO DUMONT DO Jun 17, 2020 05:28 NIYA TURPIN MD Jun 17, 2020 06:20 BLANCO RECINOS MD Jun 17, 2020 19:46
--- NOTE | 2020-06-17 05:50 | NUR ---
LORE FROM POISON CONTROL CONTACTED THIS RN REGARDING UPDATE. PER POISON CONTROL REQUEST, THIS RN ASKED PT IF SHE INGESTED ANY OTHER MEDICATIONS D/T TYLENOL LEVEL. PT REPORTS AT THE SAME TIME SHE INGESTED SETRALINE, SHE ALSO INGESTED X8 500MG TYLENOL, X8 200MG IBUPROFEN, X4 200 NAPROXEN, ET 1/2 TUBE OF TOOTH PASTE. POISON CONTROL UPDATED ET ADVISE PT TO BE MONITORED FOR ANOTHER X2HRS D/T NEW FINDINGS.
--- NOTE | 2020-06-17 06:20 | NUR ---
[facility] SENT TO LAB FOR TRENDING TYLENOL LEVEL.
[2020-06-17] MEDS ORDERED: cefTRIAXone FOR IV USE 1,000 MG in WATER (STERILE) FOR INJECTION 10 ML IV ONE (06:30)
[2020-06-17] MEDS ORDERED: CEPHALEXIN 250 MG (KEFLEX) CAP PO ONE (06:30)
--- NOTE | 2020-06-17 07:30 | NUR ---
pt up to rr at this time
--- NOTE | 2020-06-17 08:00 | NUR ---
pt mother updated about current plan of care and transfer status at this time.
--- NOTE | 2020-06-17 09:00 | NUR ---
pt reports no current needs at this time.
--- NOTE | 2020-06-17 14:00 | NUR ---
[facility] contacted at this time regarding update for bed avability. reports no beds at this time, call back later.
--- NOTE | 2020-06-17 14:10 | NUR ---
Water given to pt at this time. Pt updated of current progress to transfer/admission. Pt voices no new needs at this time.
--- NOTE | 2020-06-17 15:25 | NUR ---
[facility] faxed pt chart for possible placement at this time.
--- NOTE | 2020-06-17 15:54 | NUR ---
meal tray to pt at this time.
--- NOTE | 2020-06-17 16:41 | NUR ---
pt chart faxed to [facility] at this time.
--- NOTE | 2020-06-17 16:45 | NUR ---
pt updated with current progress to transfer/admit to psych facilty. pt reports she will call her and update him and he will call the rest of the family.
--- NOTE | 2020-06-17 19:56 | NUR ---
pt anbulated to restroom, denies needs/complaints at this time. updated on potential bed available.
--- NOTE | 2020-06-18 01:30 | NUR ---
[facility] called et. requested mental health evaluation prior to accepting pt.
--- NOTE | 2020-06-18 01:35 | NUR ---
save line contacted information provided, evaluation requested.
--- NOTE | 2020-06-18 01:55 | NUR ---
pt information faxed to [phone] per save line request. tracking number [id number].
--- NOTE | 2020-06-18 02:41 | NUR ---
[facility] called for zoom meeting with ptYahir
--- NOTE | 2020-06-18 04:08 | NUR ---
tao from [facility] called, screening information sent to [facility]. information to be reviewed by accepting
--- NOTE | 2020-06-18 05:55 | NUR ---
titus reyes contacted for transport to [facility]. he stated he would pick her up approx. 0700
[2020-06-18 06:41] VITALS: BP 121/78
== END 2020-06-18 06:43 | disposition short-term general hospital (02) ==
LOC: EDUNIT# 03:43 → ER 03:46
DX: T43.222A Poisoning by selective serotonin reuptake inhibitors, intentional self-harm, initial encounter (principal); T14.91XA Suicide attempt, initial encounter; N39.0 Urinary tract infection, site not specified; F32.9 Major depressive disorder, single episode, unspecified; Z20.828 Contact with and (suspected) exposure to other viral communicable diseases; X83.8XXA Intentional self-harm by other specified means, initial encounter
CPT/HCPCS: 80053; 80306; 81000; 82150; 84443; 84703; 85025; 87088; 93005; 93041; 99284; G0480 ×3; U0002; 36415; 80320; 80329; 87635